=== PATIENT | male | born 1995 | race Caucasian/White ===

== ENCOUNTER 2023-11-19 22:51 | Emergency (ER) | payer OTHER ==
[~2023-11-19] VITALS: Ht 182.9 cm; Wt 77.1 kg
[2023-11-19 22:55] VITALS: BP_SYST 143; PULSE 78; RESP 20; TEMP 97.3; O2SAT 100
[2023-11-19] MEDS: DIPHENHYDRAMINE INJ 50 MG/ML VIAL IVP ONE (23:29)
[2023-11-19] MEDS: FAMOTIDINE PF 20 MG/2 ML VIAL IVP ONE (23:29)
[2023-11-19] MEDS: methylPREDNISolone SOD SUCC/PF 62.5 MG/ML VIAL IVP ONE (23:30)
[2023-11-19] MEDS: KETOROLAC TROMETHAMINE 30 MG VIAL IVP ONE (23:43)
[2023-11-20 00:15] LABS: BASOPHILS # (AUTO) 0.1 K/uL (0.0-0.2); BASOPHILS % (AUTO) 0.6 % (0.0-2.0); EOSINOPHILS # (AUTO) 0.1 K/uL (0.0-0.4); EOSINOPHILS % (AUTO) 0.9 % (0.0-4.0); HEMATOCRIT 40.5 % (36-54); HEMOGLOBIN 14.1 g/dL (14.0-18.0); LYMPHOCYTES % (AUTO) 20.1 % (20.5-51.5); MEAN CORPUSCULAR HEMOGLOBIN 31 pg (27-31); MEAN CORPUSCULAR HGB CONC 35 % (32-36); MEAN CORPUSCULAR VOLUME 88 fL (79.0-98.0); MONOCYTES # (AUTO) 1.1 K/uL (0.0-1.0); MONOCYTES % (AUTO) 11.5 % (1.7-9.3); NEUTROPHILS # (AUTO) 6.5 K/uL (1.8-7.7); NEUTROPHILS % (AUTO) 66.9 % (40.0-70.0); PLATELET COUNT (AUTO) 192 K/uL (130-430); RED CELL DISTRIBUTION WIDTH 12.5 % (9.0-15.0); WHITE BLOOD COUNT (AUTO) 9.7 K/uL (4.8-10.8)
[2023-11-20] MEDS ORDERED: BEN50 PO (00:19)
[2023-11-20] MEDS ORDERED: PRED20TA PO (00:19)
[2023-11-20 00:26] LABS: BILIRUBIN,DIRECT 0.1 mg/dL (0.0-0.3); CALCIUM 9.2 mg/dL (8.4-11.0); CREATININE 1.11 mg/dL (0.55-1.30); TOTAL BILIRUBIN 0.7 mg/dL (0.0-1.0); TOTAL PROTEIN, SERUM 7.6 g/dL (6.4-8.3)
[2023-11-20 00:40] VITALS: BP_SYST 143; PULSE 78; RESP 20; TEMP 97.3; O2SAT 100
== END 2023-11-20 00:40 | disposition home or self-care (01) ==
LOC: SED 22:51
DX: T50.905A Adverse effect of unspecified drugs, medicaments and biological substances, initial encounter (principal); F17.200 Nicotine dependence, unspecified, uncomplicated; Y92.89 Other specified places as the place of occurrence of the external cause
CPT/HCPCS: 99284; 96374; 96375; 80076; 80048; 85025; 36415; J1200; J3490; J1885; J2930